=== PATIENT | male | born 1955 ===

== ENCOUNTER 2016-09-27 06:56 | Observation (INO) | payer MEDICAID ==
--- NOTE | 2016-09-27 08:05 | C.PDOC ---
History Of Present Illness 61-year-old male, denies significant PMHx, presents to the emergency department with complaints of persistent B/L epistaxis x3 days. Patient states he developed spontaneous nose bleed three days ago, which is now intermittent and last episode was prior to arrival. Pt evaluated at [facility] twice on 09/24 and 09/25, states "they didn't do nothing for me and gave me some sprays." Patient states he applies pressure on nose but is unable to fully comply "because I keep swallowing blood." Patient is concerned about losing a lot of blood. Denies dyspnea, chest pain, dizziness, or use of blood thinners. No other complaints at this time. CO PERSIST B/L EPISTAXIS X 3 DAYS. 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 EVAL @ [facility] ER X2 09/24 AND 09/25 "THEY DIDNT NOTHING FOR ME AND GAVE ME SOME SPRAYS". PS PUTS PRESSURE ON NOSE BUT UNABLE TO FULLY COMPLY "BC I KEEP SWALLOWING BLOOD". PT CONCERNED ABOUT LOSING ALOT OF BLOOD. DENIES DANIELLE, CP, DIZZY. DENIES PMH EXAM NARD NONTOXIC HEENT NO ACTIVE EPISTAXIS; DRIED BLOOD R>L; NO VISUALIZED CLOT, SWELL, ACTIVE BLEED; NO PALLOR PSYCH ANXIOUS BUT CALM SKIN WARM DRY NO PALLOR MDM NO NEED FOR TAMPONADE DUE TO LACK OF ACTIVE EPISTAXIS @ THIS TIME. NOT CANDIDATE FOR CAUTERIZATION. TAMPONADE, HUMIDIFICATION INSTRUCTIONS GIVEN. PT REQUESTING "TO DO SOMETHING" DESPITE BEING STRONGLY ADVISED NOT TO HAVE NASAL TAMPON INSERTED. PT ADVISED WILL NEED ENT FU IF PERSIST INTERMIT SX. PS CAN'T DO ENT FU DUE TO LACK OF INSURANCE. WILL CONSULT ENT Time Seen by Provider: 09/27/16 07:32 Chief Complaint (Nursing): ENT Problem History Per: Patient History/Exam Limitations: None Onset/Duration Of Symptoms: Days (3) Current Symptoms Are (Timing): Better Past Medical History Reviewed: Historical Data, Nursing Documentation, Vital Signs Vital Signs: Last Vital Signs Temp 98.0 F 09/27/16 07:06 Pulse 110 H 09/27/16 07:17 Resp 16 09/27/16 07:17 BP 124/82 09/27/16 07:06 Pulse Ox 96 09/27/16 09:01 Family History: States: Unknown Family Hx - Social History Hx Alcohol Use: Yes Hx Substance Use: No - Immunization History Hx Tetanus Toxoid Vaccination: No Hx Influenza Vaccination: No Hx Pneumococcal Vaccination: No Review Of Systems Except As Marked, All Systems Reviewed And Found Negative. Constitutional: Negative for: Fever, Chills ENT: Positive for: Other (EPISTAXIS) Cardiovascular: Negative for: Chest Pain, Palpitations Respiratory: Negative for: Shortness of Breath Gastrointestinal: Negative for: Nausea, Vomiting Musculoskeletal: Negative for: Back Pain Skin: Negative for: Rash Neurological: Negative for: Weakness, Numbness, Headache, Dizziness Physical Exam - Physical Exam Appears: Non-toxic, No Acute Distress, Other (ANXIOUS BUT CALM) Skin: Warm, Dry, No Pale, No Rash Head: Atraumatic, Normacephalic Eye(s): bilateral: Normal Inspection, PERRL, EOMI Nose: Normal, No Epistaxis (DRIED BLOOD R>L; NO VISUALIZED CLOT, no SWELL, no ACTIVE BLEED) Lips: Normal Appearing Neck: Normal ROM Chest: Symmetrical Cardiovascular: Rhythm Regular Respiratory: Normal Breath Sounds, No Accessory Muscle Use Extremity: Normal ROM Neurological/Psych: Oriented x3, Normal Speech ED Course And Treatment - Laboratory Results Result Diagrams: 09/27/16 08:11 ECG: Interpreted By Mn ECG Rhythm: Sinus Tachycardia ECG Interpretation: Abnormal Rate From EC O2 Sat by Pulse Oximetry: 96 Pulse Ox Interpretation: Normal - Radiology CXR: Interpreted by Mn CXR Interpretation: Yes: No Acute Disease Progress - Re-Evaluation Re-evaluation Note: 09/27/16 08:36 PS NEW ONSET BLACK STOOL SINCE ONSET OF EPISTAXIS. NO PRIOR HO GI BLEED, ABD PAIN, NV. D/W DR BAIG AWARE OF ER FINDINGS: RECOMMENDS B/L NASAL PACKING, WILL CONSULT 09/27/16 09:03 D/W DR CONCHA GUERRA PROGRAMMER ENGINEERING AND SCIENTIFIC AWARE OF ER FINDINGS WILL ADMIT - Data Reviewed Data Reviewed: Lab, Old records - Continuity of Care Discussed patient case with:: Patient, Family-HIPPA compliant, On-call PMD-pt unassigned Discussed pt. case with makeup sales consultant/specialty: Otolaryngology Medical Decision Making Medical Decision Making: MDM PT ADVISED NO NEED FOR TAMPONADE DUE TO LACK OF ACTIVE EPISTAXIS @ THIS TIME. NOT CANDIDATE FOR CAUTERIZATION. TAMPONADE, HUMIDIFICATION INSTRUCTIONS GIVEN. PT REQUESTING "TO DO SOMETHING" DESPITE BEING STRONGLY ADVISED NOT TO HAVE NASAL TAMPON INSERTED. PT ADVISED WILL NEED ENT FU IF PERSIST INTERMIT SX. PS CAN'T DO ENT FU DUE TO LACK OF INSURANCE. Disposition Counseled Patient/Family Regarding: Studies Performed, Diagnosis - Disposition Disposition: HOSPITALIZED Disposition Time: 08:59 Condition: STABLE - POA Present On Arrival: None - Clinical Impression Clinical Impression: Anemia, Tachycardia, Epistaxis, recurrent - Scribe Statement The provider has reviewed the documentation as recorded by the Imelda Marroquin All medical record entries made by the Jenniferibmaximus were at my direction and personally dictated by me. I have reviewed the chart and agree that the record accurately reflects my personal performance of the history, physical exam, medical decision making, and the department course for this patient. I have also personally directed, reviewed, and agree with the discharge instructions and disposition. Decision To Admit - Pt Status Changed To: Hospital Disposition Of: Observation - . Bed Request Type: Regular Admitting Physician: Jeff Dawkins Jr. Patient Diagnosis: Anemia, Tachycardia, Epistaxis, recurrent PROCEDURES - Epistaxis Control Consent Obtained: verbal consent Nostril: Bilateral Direct Inspection: unable to visualize Cautery Used: none Device Inserted: nasal tampon Device Size: 7 (7.5) Patient Tolerated Procedure: well Complications: other (NONE)
[2016-09-27 08:20] LABS: HEMATOCRIT 21.3 % (35.0-51.0); MEAN CELL VOLUME 90.7 fL (80.0-94.0); MEAN CORPUSCULAR HEMOGLOBIN 30.6 pg (27.0-31.0); MEAN CORPUSCULAR HGB CONC 33.8 g/dL (33.0-37.0); MEAN PLATELET VOLUME 7.6 fL (7.2-11.7); RED CELL DISTRIBUTION WIDTH 13.9 % (11.5-14.5); WHITE BLOOD COUNT 16.8 K/uL (4.8-10.8)
--- NOTE | 2016-09-27 08:48 | RAD ---
PROCEDURE: CHEST RADIOGRAPH, 1 VIEW HISTORY: anemia; epistaxis COMPARISON: None available. FINDINGS: LUNGS: Clear. PLEURA: No pneumothorax or pleural fluid seen. CARDIOVASCULAR: Normal. OSSEOUS STRUCTURES: Sclerotic changes over both humeral greater tuberosities -more subchondral cystic changes of the left humeral head. Probable faint right rotator cuff calcific tendinopathy. Acromioclavicular joint arthrosis -bilateral VISUALIZED UPPER ABDOMEN: Normal. OTHER FINDINGS: None. IMPRESSION: No acute cardiopulmonary pathology. Shoulder arthrosis and other findings as above
[2016-09-27] MEDS ORDERED: cefTRIAXone IV 1 gm in Dextros 50 ML IV STA (08:59)
[2016-09-27 09:02] LABS: CHLORIDE 96 mmol/L (98-107); POTASSIUM 3.8 mmol/L (3.6-5.2); SODIUM 131 mmol/L (132-148)
[2016-09-27 09:05] LABS: BLOOD UREA NITROGEN 30 mg/dL (9-20); CARBON DIOXIDE 21 mmol/L (22-30); GFR AFRICAN-AMERICAN > 60
[2016-09-27 09:06] LABS: GLUCOSE,RANDOM 147 mg/dL (75-110)
[2016-09-27] MEDS ORDERED: cefTRIAXone IV 1 gm in Dextros 50 ML IVPB ONE (09:07)
--- NOTE | 2016-09-27 11:55 | CP.PCM.HP ---
History of Present Illness - History of Present Illness History of Present Illness: Internal medicine H & P for Dr. Riya Couch, PGY-1 Pt S & E at bedside. 61M w/no sig PMH admitted for symptomatic anemia 2/2 recurrent epistaxis x 3 days. Pt reports spontaneous onset of B/L epistaxis, unprovoked. No alleviating or aggravating factors identified. Pt reports he went to [facility] ED on 09/24, 09/25 for epistaxis- discharged home with nasal sprays. Pt reports recurrence of epistaxis with symptoms of DANIELLE, F/C, weakness, fatigue, tiredness , palpitations with activity Reports coughing up blood clots, inability to sleep due to sensation of blood dripping down his throat, inability to eat due to blood dripping down this throat. Admits to headache, nasal pressure due to packing. Denies trauma, nose picking, chest pain, SOB, vision changes, dizziness , changes in bowel or bladder habits, numbness or tingling of extremities. PMH: Denies PSH: testicular surgery for undescended testicle All: NKDA SH: Admits to tobacco use, 8-10 cigarettes /day x 30 yrs, admits to rare/ special occasion ETOH use, denies illicit drugs PMD: Denies Present on Admission - Present on Admission Any Indicators Present on Admission: No History of DVT/PE: No History of Uncontrolled Diabetes: No Urinary Catheter: No Decubitus Ulcer Present: No Review of Systems - Review of Systems All systems: reviewed and no additional remarkable complaints except - Constitutional Constitutional: Chills, Fatigue, Fever, Weakness. absent: Headache - EENT Eyes: absent: Change in Vision Ears: absent: Dizziness Nose/Mouth/Throat: Epistaxis, Nose Pain. absent: Nasal Trauma, Sore Throat - Cardiovascular Cardiovascular: Dyspnea on Exertion, Palpitations. absent: Chest Pain - Respiratory Respiratory: absent: Cough - Gastrointestinal Gastrointestinal: Nausea. absent: Abdominal Pain, Constipation, Diarrhea, Vomiting - Genitourinary Genitourinary: absent: Change in Urinary Stream - Musculoskeletal Musculoskeletal: absent: Numbness, Tingling - Neurological Neurological: absent: Dizziness - Endocrine Endocrine: Fatigue Past Patient History - Past Social History Smoking Status: Light Smoker < 10 Cigarettes Daily Alcohol: Occasional Drugs: Denies - PSYCHIATRIC Hx Substance Use: No - SURGICAL HISTORY Hx Surgeries: Yes Other/Comment: testicle surgery, undescended testicle - ANESTHESIA Hx Anesthesia: Yes Hx Anesthesia Reactions: No Meds Allergies/Adverse Reactions: Allergies Allergy/AdvReac Type Severity Reaction Status Date / Time No Known Allergies Allergy Verified 09/27/16 07:12 Physical Exam - Constitutional Appears: Non-toxic, No Acute Distress - Head Exam Head Exam: ATRAUMATIC, NORMOCEPHALIC. absent: NORMAL INSPECTION (Nasal packing in place B/L w/dried blood at nasal openings ) - Eye Exam Eye Exam: EOMI, Normal appearance, PERRL. absent: Scleral icterus Pupil Exam: NORMAL ACCOMODATION, PERRL - ENT Exam ENT Exam: Mucous Membranes Moist, Normal Exam Additional comments: Nasal passages with packing in place, dried blood at openings, no current sanguinous drainage, non tender to palpation - Neck Exam Neck exam: Positive for: Full Rom, Normal Inspection - Respiratory Exam Respiratory Exam: Clear to Auscultation Bilateral, NORMAL BREATHING PATTERN. absent: Accessory Muscle Use, Chest Wall Tenderness, Decreased Breath Sounds, Rales, Rhonchi, Wheezes, Stridor - Cardiovascular Exam Cardiovascular Exam: Tachycardia, +S1, +S2 - GI/Abdominal Exam GI & Abdominal Exam: Normal Bowel Sounds, Soft. absent: Distended, Firm, Guarding, Tenderness - Extremities Exam Extremities exam: Positive for: normal capillary refill, normal inspection. Negative for: tenderness - Neurological Exam Neurological exam: Alert, CN II-XII Intact, Oriented x3 - Psychiatric Exam Psychiatric exam: Normal Affect, Normal Mood - Skin Skin Exam: Dry, Intact, Normal Color, Warm Results - Vital Signs Recent Vital Signs: Last Vital Signs Temp 98.3 F 09/27/16 10:40 Pulse 96 H 09/27/16 10:40 Resp 16 09/27/16 10:40 BP 124/83 09/27/16 10:40 Pulse Ox 97 09/27/16 10:40 - Labs Result Diagrams: 09/27/16 08:11 09/27/16 08:45 Assessment & Plan - Assessment and Plan (Free Text) Assessment: Symptomatic anemia due to epistaxis Nasal packing in place Hgb 7.2 Typed and crossed Transfuse 2 units pRBCs FU FOB Tylenol PRN pain Zofran PRN nausea ENT consulted-Behin Monitor Nicotine abuse Nicotine patch GI/DVT ppx SCDs Ambulate Contraindications to VTE ppx 2/2 active bleed Pepcid Dispo Admit to Med-Surg VS Q4H Heart healthy diet Activity as tolerated/OOBTC FU AM labs Recs as per ENT DW attending - Date & Time Date: 09/27/16 Time: 11:55
[2016-09-27 20:52] LABS: INR 1.2
[2016-09-27] MEDS ORDERED: Lactated Ringer's 1,000 ML IV ONE ×2 (21:15→22:05)
[2016-09-27] MEDS ORDERED: Propofol 10 mg/ml Inj (20 ML) ONE ×2 (21:24→22:15)
[2016-09-27] MEDS ORDERED: Midazolam 2 MG/2 ML VIAL ONE (21:24)
[2016-09-27] MEDS ORDERED: Phenylephrine 0.5% Nasal Spray (15 ml) ONE (21:24)
[2016-09-27] MEDS: Oxymetazoline 0.05% Nasal Spray (30 ml) NS ONE ×6 (21:25→22:34)
[2016-09-27] MEDS ORDERED: Succinylcholine Chloride 20 mg/ml Syr (5 ml) IV ONE ×2 (21:29→22:20)
[2016-09-27] MEDS ORDERED: Morphine 4 MG/ML VIAL ONE (21:37)
[2016-09-27] MEDS ORDERED: HYDROmorphone 0.5 mg/0.5 ml ISec IVP PRN (21:52)
[2016-09-27] MEDS ORDERED: Acetaminophen-Codeine 300/30 mg Tab PO PRN (22:11)
[2016-09-27] MEDS ORDERED: Rocuronium 10 mg/ml (5 ml) ONE (22:50)
[2016-09-28] MEDS: Dextrose 5%/0.45% NS 1,000 ML IV SCH ×3 (01:04→12:30)
[2016-09-28 01:45] VITALS: RESP 20
--- NOTE | 2016-09-28 05:15 | OP ---
PROCEDURE DATE: 09/27/2016 PREOPERATIVE DIAGNOSIS: Epistaxis, left. POSTOPERATIVE DIAGNOSIS: Epistaxis, left. PROCEDURE: Endoscopic cauterization of epistaxis. DESCRIPTION OF PROCEDURE: The patient was brought in room, placed in supine position. Anesthesia wa s initiated through an ET tube. The patient was draped in the usual manner. Nasal packs were remove d. Afrin-soaked pledgets were inserted in the nasal cavity and removed. Bleeding area was noted on the left. It was noted on the anterior superior aspect of the middle turbinate which was cauterized. The posterior portion of the inferior turbinate was also reduced using scissors, going from an infe rior to superior, anterior to posterior direction on the left. Bleeding was controlled using suction cautery. Next, the area of the sphenopalatine were explored. A bleeding spot, arterial was n oted. Suction cautery was used to cauterize the bleeding. Bleeding was controlled. At that point, the scope was removed and the patient was taken off anesthesia and taken to the recovery room in stab le manner. Jeff Gomez MD cc: [id number] TT: 09/28/2016 05:14:44 nc
[2016-09-28 09:01] LABS: BASO % 0.3 % (0.0-2.0); EOS # 0.1 K/uL (0.0-0.7); EOS % 0.7 % (0.0-4.0); HEMATOCRIT 22.8 % (35.0-51.0); LYMPH # 1.8 K/uL (1.0-4.3); LYMPH % 15.5 % (20.0-40.0); MEAN CORPUSCULAR HEMOGLOBIN 29.7 pg (27.0-31.0); MEAN CORPUSCULAR HGB CONC 33.4 g/dL (33.0-37.0); MEAN PLATELET VOLUME 7.3 fL (7.2-11.7); MONO # 0.8 K/uL (0.0-0.8); MONO % 6.8 % (0.0-10.0); RED CELL DISTRIBUTION WIDTH 14.6 % (11.5-14.5); WHITE BLOOD COUNT 11.5 K/uL (4.8-10.8)
[2016-09-28 09:16] LABS: CHLORIDE 97 mmol/L (98-107); POTASSIUM 3.3 mmol/L (3.6-5.2); SODIUM 132 mmol/L (132-148)
[2016-09-28 09:18] LABS: AST/SGOT 25 U/L (17-59); BILIRUBIN,TOTAL 0.5 mg/dL (0.2-1.3); CARBON DIOXIDE 24 mmol/L (22-30); GFR AFRICAN-AMERICAN > 60
[2016-09-28 09:19] LABS: ALB/GLOB RATIO 1.4 (1.0-2.1); ALKALINE PHOSPHATASE 30 U/L (38-126); ALT/SGPT 22 U/L (21-72); BLOOD UREA NITROGEN 15 mg/dL (9-20); CALCIUM 7.5 mg/dl (8.6-10.4); GLUCOSE,RANDOM 129 mg/dL (75-110); TOTAL PROTEIN 4.8 g/dL (6.3-8.3)
[2016-09-28] MEDS ORDERED: Potassium Chloride 20 mEq ER Tab PO ONE ×2 (09:45→13:38)
--- NOTE | 2016-09-28 16:51 | CP.PCM.PN ---
Subjective - Date & Time of Evaluation Date of Evaluation: 09/28/16 Time of Evaluation: 16:50 - Subjective Subjective: no epistaxis nose: no bleeding a/p: hbg 7.6 epistaxis controled poss transfusion as per med Objective - Vital Signs/Intake and Output Vital Signs (last 24 hours): Temp Pulse Resp BP Pulse Ox 98.2 F 86 20 104/67 98 09/28/16 08:00 09/28/16 08:00 09/28/16 08:00 09/28/16 08:00 09/28/16 08:00 Intake and Output: 09/28/16 09/28/16 06:59 18:59 Intake Total 1270 Output Total 650 Balance 620 - Medications Medications: Current Medications Acetaminophen (Tylenol 325mg Tab) 650 mg PO Q6 PRN PRN Reason: Pain, moderate (4-7) Acetaminophen/Codeine Phosphate (Tylenol/Codeine 300 Mg/30 Mg) 2 ea PO Q6 PRN PRN Reason: Pain, moderate (4-7) Famotidine (Pepcid) 20 mg PO BID [facility] Last Admin: 09/28/16 12:30 Dose: 20 mg Dextrose/Sodium Chloride (Dextrose 5%/0.45% Ns 1000 Ml) 1,000 mls @ 100 mls/hr IV .Q10H [facility] Last Admin: 09/28/16 12:30 Dose: Not Given Nicotine (Nicoderm Cq) 1 patch TD DAILY [facility] Last Admin: 09/28/16 12:31 Dose: 1 patch Ondansetron HCl (Zofran Inj) 4 mg IVP Q6 PRN PRN Reason: Nausea/Vomiting - Labs Labs: 09/28/16 08:55 09/28/16 08:55 PT 13.3 SECONDS (9.7-12.2) H 09/27/16 20:39 INR 1.2 09/27/16 20:39 APTT 25 SECONDS (21-34) 09/27/16 20:39
--- NOTE | 2016-09-28 22:02 | CP.PCM.PN ---
<Gardenia Couch - Last Filed: 09/28/16 21:58> Subjective - Date & Time of Evaluation Date of Evaluation: 09/28/16 Time of Evaluation: 10:45 - Subjective Subjective: Internal medicine progress note for Dr. Riya Couch, PGY-1 Pt S & E at bedside Pt reports insomnia, epistaxis resolved after cauterization last night. Pt reports improvement in symptoms of weakness/dizziness. Slept ok. Denies N/V/F/C , SOB, CP, abdominal pain. Objective - Vital Signs/Intake and Output Vital Signs (last 24 hours): Temp Pulse Resp BP Pulse Ox 98.2 F 96 H 20 124/68 96 09/28/16 21:29 09/28/16 21:29 09/28/16 21:29 09/28/16 21:29 09/28/16 16:00 Intake and Output: 09/28/16 09/29/16 18:59 06:59 Intake Total 1200 0 Balance 1200 0 - Medications Medications: Current Medications Acetaminophen (Tylenol 325mg Tab) 650 mg PO Q6 PRN PRN Reason: Pain, moderate (4-7) Acetaminophen/Codeine Phosphate (Tylenol/Codeine 300 Mg/30 Mg) 2 ea PO Q6 PRN PRN Reason: Pain, moderate (4-7) Famotidine (Pepcid) 20 mg PO BID [facility] Last Admin: 09/28/16 20:41 Dose: 20 mg Dextrose/Sodium Chloride (Dextrose 5%/0.45% Ns 1000 Ml) 1,000 mls @ 100 mls/hr IV .Q10H [facility] Last Admin: 09/28/16 12:30 Dose: Not Given Nicotine (Nicoderm Cq) 1 patch TD DAILY [facility] Last Admin: 09/28/16 12:31 Dose: 1 patch Ondansetron HCl (Zofran Inj) 4 mg IVP Q6 PRN PRN Reason: Nausea/Vomiting - Labs Labs: 09/28/16 08:55 09/28/16 08:55 PT 13.3 SECONDS (9.7-12.2) H 09/27/16 20:39 INR 1.2 09/27/16 20:39 APTT 25 SECONDS (21-34) 09/27/16 20:39 - Constitutional Appears: Non-toxic, No Acute Distress - Head Exam Head Exam: ATRAUMATIC, NORMAL INSPECTION, NORMOCEPHALIC - Eye Exam Eye Exam: EOMI, Normal appearance, PERRL Pupil Exam: NORMAL ACCOMODATION, PERRL - ENT Exam ENT Exam: Mucous Membranes Moist, Normal Exam - Neck Exam Neck Exam: Full ROM, Normal Inspection - Respiratory Exam Respiratory Exam: Clear to Ausculation Bilateral, NORMAL BREATHING PATTERN. absent: Rales, Rhonchi, Wheezes - Cardiovascular Exam Cardiovascular Exam: REGULAR RHYTHM, +S1, +S2 - GI/Abdominal Exam GI & Abdominal Exam: Soft, Normal Bowel Sounds. absent: Distended, Tenderness - Extremities Exam Extremities Exam: Full ROM, Normal Inspection - Back Exam Back Exam: Full ROM, NORMAL INSPECTION - Neurological Exam Neurological Exam: Alert, Awake, CN II-XII Intact, Oriented x3 - Psychiatric Exam Psychiatric exam: Normal Affect, Normal Mood - Skin Skin Exam: Dry, Intact, Normal Color, Warm. absent: Pallor Assessment and Plan - Assessment and Plan (Free Text) Assessment: Symptomatic anemia due to epistaxis Nasal packing in place Hgb 7.6 from 7.2 Transfuse 2 more units pRBCs FU FOB Tylenol PRN pain Zofran PRN nausea ENT consulted-Behin- pt taken for cauterization last night w/hemostasis, D5/0.5 NS @100 started, Tylenol w/Codeine started PRN Monitor Nicotine abuse Nicotine patch GI/DVT ppx SCDs Ambulate Contraindications to VTE ppx 2/2 active bleed Pepcid Dispo Activity as tolerated/OOBTC FU H/H DW attending <Jeff Dawkins Jr. - Last Filed: 09/29/16 12:08> Objective - Vital Signs/Intake and Output Vital Signs (last 24 hours): Temp Pulse Resp BP Pulse Ox 98 F 81 20 103/51 L 96 09/29/16 08:00 09/29/16 08:00 09/29/16 08:00 09/29/16 08:00 09/29/16 08:00 Intake and Output: 09/29/16 09/29/16 06:59 18:59 Intake Total 1735 Output Total 500 Balance 1235 - Medications Medications: Current Medications Acetaminophen (Tylenol 325mg Tab) 650 mg PO Q6 PRN PRN Reason: Pain, moderate (4-7) Acetaminophen/Codeine Phosphate (Tylenol/Codeine 300 Mg/30 Mg) 2 ea PO Q6 PRN PRN Reason: Pain, moderate (4-7) Famotidine (Pepcid) 20 mg PO BID [facility] Last Admin: 09/28/16 20:41 Dose: 20 mg Dextrose/Sodium Chloride (Dextrose 5%/0.45% Ns 1000 Ml) 1,000 mls @ 100 mls/hr IV .Q10H [facility] Last Admin: 09/29/16 05:35 Dose: 100 mls/hr Nicotine (Nicoderm Cq) 1 patch TD DAILY [facility] Last Admin: 09/28/16 12:31 Dose: 1 patch Ondansetron HCl (Zofran Inj) 4 mg IVP Q6 PRN PRN Reason: Nausea/Vomiting - Labs Labs: 09/29/16 07:27 09/29/16 07:27 PT 13.3 SECONDS (9.7-12.2) H 09/27/16 20:39 INR 1.2 09/27/16 20:39 APTT 25 SECONDS (21-34) 09/27/16 20:39 Attending/Attestation - Attestation I have personally seen and examined this patient.: Yes I have fully participated in the care of the patient.: Yes I have reviewed all pertinent clinical information, including history, physical exam and plan: Yes
[2016-09-29] MEDS: Dextrose 5%/0.45% NS 1,000 ML IV SCH ×3 (04:00→14:21)
[2016-09-29 07:47] LABS: BASO % 0.2 % (0.0-2.0); EOS # 0.1 K/uL (0.0-0.7); EOS % 1.3 % (0.0-4.0); HEMATOCRIT 28.8 % (35.0-51.0); LYMPH # 1.1 K/uL (1.0-4.3); LYMPH % 11.6 % (20.0-40.0); MEAN CELL VOLUME 89.3 fL (80.0-94.0); MEAN CORPUSCULAR HEMOGLOBIN 30.2 pg (27.0-31.0); MEAN CORPUSCULAR HGB CONC 33.8 g/dL (33.0-37.0); MEAN PLATELET VOLUME 7.5 fL (7.2-11.7); MONO # 0.5 K/uL (0.0-0.8); MONO % 4.9 % (0.0-10.0); WHITE BLOOD COUNT 9.7 K/uL (4.8-10.8)
[2016-09-29 07:57] LABS: CHLORIDE 99 mmol/L (98-107)
[2016-09-29 07:58] LABS: POTASSIUM 3.8 mmol/L (3.6-5.2); SODIUM 135 mmol/L (132-148)
[2016-09-29 08:00] LABS: ALB/GLOB RATIO 1.4 (1.0-2.1); ALKALINE PHOSPHATASE 43 U/L (38-126); ALT/SGPT 42 U/L (21-72); AST/SGOT 33 U/L (17-59); BLOOD UREA NITROGEN 10 mg/dL (9-20); CARBON DIOXIDE 24 mmol/L (22-30); GFR AFRICAN-AMERICAN > 60; TOTAL PROTEIN 5.2 g/dL (6.3-8.3)
[2016-09-29 08:01] LABS: CALCIUM 7.4 mg/dl (8.6-10.4); GLUCOSE,RANDOM 99 mg/dL (75-110)
[2016-09-29 08:48] VITALS: BP 103/51; PULSE 81; TEMP 98; O2SAT 96
[2016-09-29] MEDS ORDERED: Magnesium Hydroxide Susp 30 ml UD PO ONE (10:02)
--- NOTE | 2016-09-29 19:45 | CP.PCM.DIS ---
Provider - Provider Date of Admission: 09/27/16 09:07 Attending physician: Jeff Dawkins Jr, MD Primary care physician: Dr. Dawkins Consults: Dr. Gomez Time Spent in preparation of Discharge (in minutes): 50 Hospital Course - Lab Results Lab Results: Most Recent Lab Values WBC 9.7 K/uL (4.8-10.8) 09/29/16 07: RBC 3.22 Mil/uL (4.40-5.90) L 09/29/16 07:27 Hgb 9.7 g/dL (12.0-18.0) L D 09/29/16 07:27 Hct 28.8 % (35.0-51.0) L 09/29/16 07: MCV 89.3 fL (80.0-94.0) 09/29/16 07: MCH 30.2 pg (27.0-31.0) 09/29/16 07: MCHC 33.8 g/dL (33.0-37.0) 09/29/16 07: RDW 15.0 % (11.5-14.5) H 09/29/16 07:27 Plt Count 177 K/uL (130-400) 09/29/16 07:27 MPV 7.5 fL (7.2-11.7) 09/29/16 07: Neut % (Auto) 82.0 % (50.0-75.0) H 09/29/16 07: Lymph % (Auto) 11.6 % (20.0-40.0) L 09/29/16 07:27 [place] % (Auto) 4.9 % (0.0-10.0) 09/29/16 07:27 Eos % (Auto) 1.3 % (0.0-4.0) 09/29/16 07:27 Baso % (Auto) 0.2 % (0.0-2.0) 09/29/16 07:27 Neut # 7.9 K/uL (1.8-7.0) H 09/29/16 07:27 Lymph # 1.1 K/uL (1.0-4.3) 09/29/16 07: [place] # 0.5 K/uL (0.0-0.8) 09/29/16 07:27 Eos # 0.1 K/uL (0.0-0.7) 09/29/16 07:27 Baso # 0.0 K/uL (0.0-0.2) 09/29/16 07:27 PT 13.3 SECONDS (9.7-12.2) H 09/27/16 20:39 INR 1.2 09/27/16 20:39 APTT 25 SECONDS (21-34) 09/27/16 20:39 Sodium 135 mmol/L (132-148) 09/29/16 07:27 Potassium 3.8 mmol/L (3.6-5.2) 09/29/16 07:27 Chloride 99 mmol/L (98-107) 09/29/16 07: Carbon Dioxide 24 mmol/L (22-30) 09/29/16 07:27 Anion Gap 15 (10-20) 09/29/16 07:27 BUN 10 mg/dL (9-20) 09/29/16 07:27 Creatinine 0.8 MG/DL (0.8-1.5) 09/29/16 07:27 Est GFR ( Amer) > 60 09/29/16 07:27 Est GFR (Non-Af Amer) > 60 09/29/16 07:27 Random Glucose 99 mg/dL (75-110) 09/29/16 07:27 Calcium 7.4 mg/dl (8.6-10.4) L 09/29/16 07:27 Total Bilirubin 1.0 mg/dL (0.2-1.3) 09/29/16 07:27 AST 33 U/L (17-59) 09/29/16 07:27 ALT 42 U/L (21-72) 09/29/16 07:27 Alkaline Phosphatase 43 U/L (38-126) 09/29/16 07:27 Total Protein 5.2 g/dL (6.3-8.3) L 09/29/16 07:27 Albumin 3.0 g/dL (3.5-5.0) L 09/29/16 07:27 Globulin 2.1 gm/dL (2.2-3.9) L 09/29/16 07:27 Albumin/Globulin Ratio 1.4 (1.0-2.1) 09/29/16 07:27 Blood Type O POSITIVE 09/27/16 08:45 Antibody Screen Negative 09/27/16 08:45 - Hospital Course Hospital Course: 61M w/no sig PMH admitted for symptomatic anemia 2/2 recurrent epistaxis x 3 days. Pt reports spontaneous onset of B/L epistaxis, unprovoked. No alleviating or aggravating factors identified. Pt reports he went to [place] ED on 09/24, 09/25 for epistaxis- discharged home with nasal sprays. Pt reports recurrence of epistaxis with symptoms of DANIELLE, F/C, weakness, fatigue, tiredness , palpitations with activity Reports coughing up blood clots, inability to sleep due to sensation of blood dripping down his throat, inability to eat due to blood dripping down this throat. Admits to headache, nasal pressure due to packing. Denies trauma, nose picking, chest pain, SOB, vision changes, dizziness , changes in bowel or bladder habits, numbness or tingling of extremities. Pt hgb was 7.2 and was transfused 2U pRBC. Dr. Gomez consulted and cauterization was done. Epistaxis was resolved after that. Repeat hgb was 9.7 and pt discharged with instructions to follow up with Dr. Dawkins and Dr. Gomez. Discharge Exam - Head Exam Head Exam: ATRAUMATIC, NORMAL INSPECTION, NORMOCEPHALIC - Eye Exam Eye Exam: Normal appearance - Respiratory Exam Respiratory Exam: Clear to PA & Lateral, NORMAL BREATHING PATTERN - Cardiovascular Exam Cardiovascular Exam: REGULAR RHYTHM, +S1, +S2 - GI/Abdominal Exam GI & Abdominal Exam: Normal Bowel Sounds - Neurological Exam Neurological exam: Alert, Oriented x3 Discharge Plan - Follow Up Plan Condition: IMPROVED Disposition: HOME/ ROUTINE Instructions: Nosebleed (GEN), Anemia (DC) Additional Instructions: Discharged home per Dr. Dawkins. Please do not take any nasal decongestant sprays for now. Use humidifier and steam from hot shower to help with nasal congestion as per discussion. Make appointment and follow up with PMD Dr. Dawkins and ENT Dr. Gomez within 1-2 weeks after discharge. Come to ED if symptoms reoccurred. Referrals: Jeff Gomez MD [Staff Provider] - Jeff Dawkins Jr., MD [Family Provider] -
== END 2016-09-29 14:21 | disposition home or self-care (01) ==
LOC: C.ER 06:56 → C.9E 09:07 → C.3T 10:25
PROVIDERS: ADMIT Internal Medicine; ATTEND Internal Medicine
DX: R04.0 Epistaxis (principal); Z72.0 Tobacco use; G47.00 Insomnia, unspecified; D64.9 Anemia, unspecified
CPT/HCPCS: 30802; 31238; 36415 ×2; 36430; 71010; 80048; 80053 ×2; 85025 ×2; 85027; 85610; 85730; 86850; 86900; 86920; 88305; 99285; G0378 ×3; J0696; J2250; J2270; J2704; J3010; J7042 ×2; J7120; P9051 ×3